=== PATIENT | female | born 1985 ===

== ENCOUNTER 2017-12-25 17:44 | Outpatient (REF) | payer MEDICAID, SELFPAY ==
[2017-12-25 21:23] LABS: ALT 77 U/L (12-78); AST 54 U/L (15-37); Albumin 3.2 g/dL (3.4-5.0); Alkaline Phosphatase 92 U/L (46-116); Bilirubin, Direct 0.11 mg/dL (0.00-0.20); Bilirubin, Total 0.4 mg/dL (0.2-1.0); Total Protein 6.9 g/dL (6.4-8.2)
[2017-12-25 21:49] LABS: Hemoglobin A1C 5.8 % (4.5-6.2)
== END 2017-12-25 18:04 ==
LOC: NCHCN 17:44
PROVIDERS: PCP Nurse Practitioner Family; Visit Provider Family Medicine
DX: R73.09 Other abnormal glucose (principal); R74.8 Abnormal levels of other serum enzymes
CPT/HCPCS: 80076; 83036

== ENCOUNTER 2018-06-12 17:05 | Outpatient (REF) | payer MEDICAID, SELFPAY ==
[2018-06-12 22:31] LABS: ALT 61 U/L (12-78); AST 40 U/L (15-37); Albumin 3.4 g/dL (3.4-5.0); Alkaline Phosphatase 92 U/L (46-116); Anion Gap 8.7 mmol/L (3-11); BUN 13 mg/dL (7-18); Bilirubin, Total 0.4 mg/dL (0.2-1.0); CO2 28.3 mmol/L (21.0-32.0); CREATININE 0.84 mg/dL (0.55-1.02); Calcium 9.6 mg/dL (8.5-10.1); Chloride 102 mmol/L (98-107); Cholesterol 186 mg/dL (50-200); Glucose 123 mg/dL (70-100); HDL Cholesterol 36 mg/dL (40-60); LDL CHOLESTEROL 133 mg/dL (<100); Potassium 4.9 mmol/L (3.5-5.1); Sodium 139 mmol/L (136-145); Total Protein 7.5 g/dL (6.4-8.2); Triglyceride 118 mg/dL (30-150)
== END 2018-06-12 17:25 ==
LOC: NCHCN 17:05
PROVIDERS: PCP Nurse Practitioner Family; Visit Provider Family Medicine
DX: I10 Essential (primary) hypertension (principal); E66.01 Morbid (severe) obesity due to excess calories; Z00.00 Encounter for general adult medical examination without abnormal findings
CPT/HCPCS: 80053; 80061; 83721

== ENCOUNTER 2019-02-13 11:44 | Outpatient (REF) | payer MEDICAID, SELFPAY ==
[2019-02-13 22:13] LABS: HCT 39.7 % (36.0-46.0); HGB 12.2 g/dL (12.0-15.5); Mean Corp. HGB Concentration 30.7 g/dL (32.0-36.0); Mean Corpuscular Volume 84.5 fL (80-95); Mean Platelet Volume 10.9 fL (8.0-11.0); Platelet Count 235 x1000/uL (130-400); RBC Distribution Width 15.1 % (11.7-14.6); White Blood Cell Count 5.73 k/cumm (4.4-10.8)
[2019-02-13 22:29] LABS: ALT 61 U/L (14-59); AST 42 U/L (15-37); Albumin 3.5 g/dL (3.4-5.0); Alkaline Phosphatase 90 U/L (46-116); Anion Gap 7.7 mmol/L (3-11); BUN 9 mg/dL (7-18); Bilirubin, Total 0.4 mg/dL (0.2-1.0); CO2 29.3 mmol/L (21.0-32.0); CREATININE 0.83 mg/dL (0.55-1.02); Calcium 9.1 mg/dL (8.5-10.1); Chloride 104 mmol/L (98-107); Glucose 107 mg/dL (74-106); Potassium 4.6 mmol/L (3.5-5.1); Sodium 141 mmol/L (136-145); Total Protein 7.4 g/dL (6.4-8.2)
== END 2019-02-13 12:04 ==
LOC: NCHCN 11:44
PROVIDERS: PCP Nurse Practitioner Family; Visit Provider Family Medicine
DX: I10 Essential (primary) hypertension (principal); J45.21 Mild intermittent asthma with (acute) exacerbation; K75.81 Nonalcoholic steatohepatitis (NASH); R73.09 Other abnormal glucose; N92.4 Excessive bleeding in the premenopausal period
CPT/HCPCS: 80053; 85027; 83036

== ENCOUNTER 2019-07-01 11:47 | Outpatient (REF) | payer MEDICAID, SELFPAY ==
[2019-07-01 20:45] LABS: ALT 63 U/L (14-59); AST 46 U/L (15-37); Albumin 3.3 g/dL (3.4-5.0); Alkaline Phosphatase 87 U/L (46-116); Anion Gap 3.4 mmol/L (3-11); BUN 12 mg/dL (7-18); Bilirubin, Total 0.6 mg/dL (0.2-1.0); CO2 32.6 mmol/L (21.0-32.0); CREATININE 0.77 mg/dL (0.55-1.02); Calcium 8.6 mg/dL (8.5-10.1); Chloride 105 mmol/L (98-107); Glucose 129 mg/dL (74-106); Potassium 4.7 mmol/L (3.5-5.1); Sodium 141 mmol/L (136-145); Total Protein 7.1 g/dL (6.4-8.2)
[2019-07-01 20:46] LABS: Hemoglobin A1C 6.9 % (3.8-5.6)
== END 2019-07-01 12:07 ==
LOC: NCHCN 11:47
PROVIDERS: PCP Family Medicine; Visit Provider Family Medicine
DX: R73.03 Prediabetes (principal); I10 Essential (primary) hypertension; K75.81 Nonalcoholic steatohepatitis (NASH); R74.8 Abnormal levels of other serum enzymes
CPT/HCPCS: 80053; 83036

== ENCOUNTER 2019-07-09 15:08 | Outpatient (REF) | payer MEDICAID, SELFPAY ==
[2019-07-09 21:11] LABS: Hemoglobin A1C 7.1 % (3.8-5.6)
== END 2019-07-09 15:28 ==
LOC: NCHCN 15:08
PROVIDERS: PCP Family Medicine; Visit Provider Family Medicine
DX: R73.03 Prediabetes (principal)
CPT/HCPCS: 83036

== ENCOUNTER 2020-11-26 15:04 | Outpatient (REF) | payer MEDICAID, SELFPAY ==
[2020-11-26 20:43] LABS: Abs Immature Grans 0.01 10^3/uL (0.0-0.06); Absolute Basophil Count 0.04 10^3/uL (0.0-0.2); Absolute Eosinophil Count 0.15 10^3/uL (0.0-0.7); Absolute Lymphocyte Count 1.29 10^3/uL (1.2-3.4); Absolute Monocyte Count 0.51 10^3/uL (0.1-0.8); Absolute Neutrophil Count 4.25 10^3/uL (1.2-6.7); Basophils % 0.6; Eosinophils % 2.4; HCT 37.2 % (36.0-46.0); HGB 11.2 g/dL (11.2-15.7); Immature Grans % 0.2; Lymphocytes % 20.6; MCH 25.9 pg (27.0-33.0); MCHC 30.1 % (32.0-36.0); MCV 86.1 fL (80-95); MPV 10.5 fL (8.0-11.0); Monocytes % 8.2; Nucleated RBC 0 %; Platelet Count 249 10^3/uL (130-400); RBC 4.32 10^6/uL (3.93-5.22); RDW 15.3 % (11.7-14.6); RDW-SD 47.8 fL; WBC 6.25 10^3/uL (4.4-10.8)
[2020-11-26 20:47] LABS: Anion Gap 8.5 mmol/L (3-11); BUN 11 mg/dL (7-18); CO2 27.5 mmol/L (21.0-32.0); CREATININE 0.7 mg/dL (0.55-1.02); Chloride 105 mmol/L (98-107); Glucose 106 mg/dL (74-106); Potassium 4.2 mmol/L (3.5-5.1); Sodium 141 mmol/L (136-145)
== END 2020-11-26 15:05 | disposition home or self-care (01) ==
LOC: NCHCN 15:04
PROVIDERS: PCP Family Medicine; Visit Provider Nurse Practitioner Family
DX: R10.9 Unspecified abdominal pain (principal)
CPT/HCPCS: 80048; 85025

== ENCOUNTER 2021-03-17 18:47 | Outpatient (REF) | payer SELFPAY ==
[2021-03-19 10:20] LABS: COVID-19 RT-PCR UVMMC Result Negative (Negative)
== END 2021-03-17 18:48 | disposition home or self-care (01) ==
LOC: NCHCN 18:47
PROVIDERS: PCP Family Medicine; Visit Provider Registered Nurse
DX: Z20.822 Contact with and (suspected) exposure to COVID-19 (principal); R11.0 Nausea; R10.9 Unspecified abdominal pain
CPT/HCPCS: U0003